=== PATIENT | male | born 1990 | race Asian ===

== ENCOUNTER 2020-03-30 16:55 | Emergency (ER) | payer BC ==
[~2020-03-30] VITALS: Ht 180.3 cm; Wt 88.5 kg
--- NOTE | 2020-03-30 17:16 | NUR ---
PATIENT CAME IN TO THE ER C/O LOWER BACK PAIN S/P LIFTING WEIGHTS/SQUATS AT 1300 TODAY. ON ROOM AIR, BREATHING EVENLY AND UNLABORED. CONNECTED TO THE MONITOR AND PULSE OX. KEPT COMFORTBALE, WILL CONTINUE TO MONITOR ACCORDINGLY.
[2020-03-30] MEDS ORDERED: HYDROCODONE/APAP 5/325MG 1 EACH TABLET ONE (17:43)
[2020-03-30] MEDS ORDERED: KETOROLAC TROMETHAMINE INJ 30 MG/ML VIAL ONE (17:44)
[2020-03-30] MEDS: KETOROLAC TROMETHAMINE INJ 60 MG/2 ML VIAL IM ONE (18:00)
[2020-03-30] MEDS: HYDROCODONE/APAP 5/325MG 1 EACH TABLET PO ONE (18:00)
[2020-03-30] MEDS: LIDOCAINE 5% (PATCH) 1 EA PATCH TP SCH (18:11)
--- NOTE | 2020-03-30 19:33 | NUR ---
Patient discharged to home in stable condition. Written and verbal after care instructions given. Patient verbalizes understanding of instruction.
[2020-03-30 19:34] VITALS: BP 135/66
== END 2020-03-30 19:34 | disposition home or self-care (01) ==
LOC: ER 17:00
DX: S39.012A Strain of muscle, fascia and tendon of lower back, initial encounter (principal); X58.XXXA Exposure to other specified factors, initial encounter; Y93.B9 Activity, other involving muscle strengthening exercises; Y92.89 Other specified places as the place of occurrence of the external cause; Y99.8 Other external cause status
CPT/HCPCS: 72110; 96372; 99283; J1885